=== PATIENT | male | born 1995 | race Caucasian/White ===

== ENCOUNTER 2021-03-02 12:45 | Emergency (ER) | payer SELFPAY ==
--- NOTE | 2021-03-02 12:49 | ED_ITS ---
HPI - Skin/Abscess/Foreign Bdy General: Chief complaint: Skin/Abscess/Foreign Body Stated complaint: ABSCESS ON FACE Time Seen by Provider: 03/02/21 12:46 Source: patient and family Mode of arrival: ambulatory Limitations: no limitations History of Present Illness: HPI narrative: Patient is a 25-year-old male who presents to ED today with a complaint of a facial abscess. Patient states approximately 3 days ago he noticed what looked like a pimple on the right side of his face and states the lesion has continued to enlarge and become more painful. 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 He states they have never been cultured so is not aware of any personal staph or MRSA history. He has not been running fevers. He is still able to eat and drink. No drainage from the lesion. MD complaint: abscess/boil Onset (ago): day(s) Tetanus up to date: yes Location: face Severity: moderate Pain Consistency: constant Relieving factors: none Exacerbating factors: palpation Context: other (hx of recurrent abscesses) Associated symptoms: Reports no associated symptoms; Deny chills, fever(s), nausea or vomiting Treatments prior to arrival: none Review of Systems Const: Denies: fever(s), chills, body aches or fatigue ENMT: Reports: other (facial swelling/abscess) GI: Denies: nausea or vomiting Musc: Denies: neck pain Neuro: Denies: headache(s) Physical Exam Const: COMMON NORMALS: no acute distress, average body habitus, patient oriented x3, no limitations, healthy appearing, alert and well nourished GENERAL APPEARANCE: cooperative ORIENTATION/CONSCIOUSNESS: Yes awake, Yes oriented to person, Yes oriented to place and Yes oriented to time HENMT: COMMON NORMALS: normocephalic and atraumatic HEAD & SCALP: normal to inspection, normocephalic and atraumatic FACE & SINUS: sinuses nontender FACE & SINUS IMAGES: 1. 1.5 inch area of induration w/o fluctuance or overlying cellulitis; no drainage TEETH & GINGIVA: Yes poor dentition (but no obvious dental caries/oral abscess noted ) THROAT: posterior oropharynx normal, tonsils normal and uvula midline Eye: GENERAL EYE: appearance normal, both eyes and all related structures Neck/C-Spine: COMMON NORMALS: full ROM, no lymphadenopathy and no meningeal signs Neuro: COMMON NORMALS: patient oriented x3 SENSORIUM/ORIENTATION: Yes alert, Yes oriented to person, Yes oriented to place and Yes oriented to time MENINGEAL SIGNS: Yes no meningeal signs Course Vital Signs: Vital signs: Vital Signs Temperature 98.8 F 03/02/21 13:00 Pulse Rate 65 03/02/21 13:00 Respiratory Rate 17 03/02/21 13:00 Blood Pressure 121/67 03/02/21 13:00 Pulse Oximetry 98 03/02/21 13:00 MDM - Skin/Abscess/Foreign Bdy MDM Narrative: Medical decision making narrative: Area was ultrasounded using bedside US and I do not appreciate any drainable abscess at this time. He was given IM rocephin which will cover for staph. Will place him on Bactrim DS. Due to recurrent abscesses will try staph de-colonization with mupirocin and chlorhexidine. Return to ED precautions given regarding facial abscess. He is not tachycardic or febrile. Imaging/labs at this time unlikely to change overall management therefore were not performed. Discharge Plan Discharge Patient Disposition: Home Clinical Impression: Cutaneous abscess of face Condition: Stable Prescriptions: New Bactrim DS 800-160 mg tablet 2 tab PO BID 7 Days Qty: 28 RF: 0 mupirocin 2 % ointment 1 applic topical BID Qty: 22 RF: 0 Antiseptic Skin Clnsr(chlorhe) 4 % liquid 1 applic topical Q5M Qty: 3800 RF: 0 Discharge Orders: Discharge ED (Routine); Ordered 03/02/21 Ordered By: Judith Albarran Patient Instructions: Abscess (ED) Activity Restrictions/Additional Instructions: Begin antibiotics immediately. I have prescribed you an ointment to put in your nares as well as a skin cleanser in attempts to eradicate staphylococcal bacteria. Please return to the emergency department if your facial abscess continues to worsen despite antibiotic therapy, inability to open your mouth or eat, not being able to hold down your antibiotics, fevers, or any other concerns you may have. Coding Level of Care Code ED [employer] Operator for Srinivas Cote
[2021-03-02 13:00] VITALS: BP 121/67; PULSE 65; RESP 17; TEMP 37.1; O2SAT 98; BMI 23.7
[2021-03-02] MEDS: cefTRIAXone 1,000 mg SDV 1000 MG IM (13:52)
[2021-03-02] MEDS: lidocaine 1% INJ 20 mL 2.1 ML IM (13:52)
== END 2021-03-02 13:58 | disposition home or self-care (01) ==
PROVIDERS: Emergency Provider Physician Assistant
DX: L02.01 Cutaneous abscess of face (principal)
CPT/HCPCS: 96372; 99283; J0696